=== PATIENT | female | born 1980 | race African-American/Black ===

== ENCOUNTER 2021-01-04 10:02 | Emergency (ER) | payer OTHER ==
[2021-01-04 10:09] VITALS: BMI 40.4
[2021-01-04] MEDS ORDERED: SODIUM CHLORIDE 1,000 ML IV STA (10:59)
[2021-01-04 11:36] LABS: BASO % 1.2 % (0-2.0); EOS % 1.5 % (0-4.5); HEMATOCRIT 39.7 % (32.4-45.2); HEMOGLOBIN 13.2 GM/dL (10.7-15.3); LYMPH % 30.5 % (8-40); MCH 27.6 pg (25.7-33.7); MCHC 33.1 g/dl (32.0-36.0); MEAN CELL VOLUME 83.3 fl (80-96); MEAN PLT VOLUME 7.9 fl (7.5-11.1); MONO % 5.7 % (3.8-10.2); NEUT % 61.1 % (42.8-82.8); PLATELET COUNT 377 10^3/uL (134-434); RBC 4.77 M/mm3 (3.60-5.2); RDW 16.3 % (11.6-15.6); WHITE BLOOD COUNT 6.9 K/mm3 (4.0-10.0)
[2021-01-04 11:43] LABS: INR 0.97 (0.83-1.09); PROTHROMBIN TIME (PATIENT) 11.8 SEC (9.7-13.0)
[2021-01-04 12:06] LABS: BLOOD UREA NITROGEN 14.7 mg/dL (7-18); CALCIUM 9.4 mg/dL (8.5-10.1)
[2021-01-04 12:10] LABS: CREATININE 0.8 mg/dL (0.55-1.3)
[2021-01-04 12:11] LABS: BILIRUBIN,TOTAL 0.3 mg/dL (0.2-1); TOT PROT 7.8 g/dl (6.4-8.2)
[2021-01-04 17:25] VITALS: BP 113/70; PULSE 83; TEMP 98.2
[2021-01-04 17:38] LABS: EPI CELLS 9 /uL (0-25.1); HYALINE CASTS 1 /uL (0-3.1); PH,URINE 5.5 (5.0-8.0); URINE APPEARANCE CLEAR; URINE BACTERIA 15 /uL (0-1359); URINE BILIRUBIN NEGATIVE (NEGATIVE); URINE COLOR RED; URINE GLUCOSE (UA) NEGATIVE (NEGATIVE); URINE KETONE NEGATIVE (NEGATIVE); URINE LEUK ESTERASE TRACE (NEGATIVE); URINE NITRITE NEGATIVE (NEGATIVE); URINE PROTEIN 1+ (NEGATIVE); URINE RBC 5151 /uL (0-23.9); URINE UROBILINOGEN 0.2 mg/dL (0.2-1.0); URINE WBC 36 /uL (0-25.8)
[2021-01-04 17:44] LABS: HCG,QUALITATIVE URINE NEGATIVE
== END 2021-01-04 18:05 | disposition home or self-care (01) ==
LOC: JER 10:02
PROC: 3E0337Z Introduction of Electrolytic and Water Balance Substance into Peripheral Vein, Percutaneous Approach (ICD-10-PCS; principal; 2021-01-04)
DX: N94.6 Dysmenorrhea, unspecified (principal)
CPT/HCPCS: 36415; 76830-TC; 80053; 81003; 84703; 85025; 85610; 86850; 86900; 86901; 87077; 87086; 99284-25

== ENCOUNTER 2021-09-05 18:11 | Emergency (ER) | payer OTHER ==
[2021-09-05 18:37] VITALS: BMI 41.2
[2021-09-05] MEDS ORDERED: KETOROLAC TROMETHAMINE 30 MG/1 ML VIAL IM ONE (22:33)
[2021-09-05] MEDS ORDERED: SODIUM CHLORIDE 0.9% 500 ML INFUS.BAG IV ONE (22:34)
[2021-09-05] MEDS ORDERED: KETOROLAC TROMETHAMINE 30 MG/1 ML VIAL IVPUSH ONE (22:35)
[2021-09-05] MEDS ORDERED: KETOROLAC TROMETHAMINE 30 MG/1 ML VIAL ONE (22:45)
[2021-09-06 02:02] VITALS: BP 136/89; PULSE 88; TEMP 97.8
== END 2021-09-06 02:19 | disposition home or self-care (01) ==
LOC: JER 18:11
PROC: 3E0333Z Introduction of Anti-inflammatory into Peripheral Vein, Percutaneous Approach (ICD-10-PCS; principal; 2021-09-05)
DX: R10.2 Pelvic and perineal pain (principal)
CPT/HCPCS: 76830-TC; 99284-25

== ENCOUNTER 2021-10-11 04:17 | Day surgery (SDC) | payer OTHER ==
[2021-10-10 13:13] VITALS: BMI 40.8
[2021-10-11] MEDS ORDERED: FENTANYL CITRATE/PF 50 MCG/ML VIAL ONE ×4 (14:45→16:31)
[2021-10-11] MEDS ORDERED: MIDAZOLAM HCL 2 MG/2 ML SINGLE DOSE VIAL ONE (14:46)
[2021-10-11] MEDS ORDERED: PROPOFOL 20 ML ONE ×4 (14:46)
[2021-10-11] MEDS ORDERED: ROCURONIUM BROMIDE 100 MG/10 ML VIAL ONE ×2 (14:46→16:58)
[2021-10-11] MEDS ORDERED: PROMETHAZINE HCL 25 MG/1 ML VIAL IVPUSH PRN (15:49)
[2021-10-11] MEDS ORDERED: oxyCODONE HCL 5 MG TABLET PO PRN (15:49)
[2021-10-11] MEDS ORDERED: ONDANSETRON 4 MG/2 ML VIAL IVPUSH PRN (15:49)
[2021-10-11] MEDS ORDERED: LACTATED RINGERS SOLUTION 1,000 ML IV SCH (16:00)
[2021-10-11] MEDS ORDERED: ceFAZolin SODIUM 1 GM VIAL IVPB ONE (16:15)
[2021-10-11] MEDS ORDERED: NEOSTIGMINE METHYLSULFATE 0.5 MG/ML - 10 ML MDV ONE (16:48)
[2021-10-11] MEDS ORDERED: LIDOCAINE HCL/PF 2% SDV 5ML VIAL ONE (16:50)
[2021-10-11] MEDS ORDERED: ONDANSETRON 4 MG/2 ML VIAL ONE ×2 (16:50→17:30)
[2021-10-11] MEDS ORDERED: ceFAZolin SODIUM 1 GM VIAL ONE (16:50)
[2021-10-11] MEDS ORDERED: METOPROLOL TARTRATE 5 MG/5 ML VIAL ONE (16:50)
[2021-10-11] MEDS ORDERED: GLYCOPYRROLATE 0.2 MG/1 ML VIAL ONE ×2 (16:50→17:13)
[2021-10-11] MEDS ORDERED: KETOROLAC TROMETHAMINE 30 MG/1 ML VIAL ONE (16:50)
[2021-10-11] MEDS ORDERED: DEXAMETHASONE SOD PHOSPHATE 4 MG/1 ML VIAL ONE (16:50)
[2021-10-11 19:52] VITALS: BP 117/71; PULSE 79; TEMP 97.9
== END 2021-10-11 19:40 | disposition home or self-care (01) ==
LOC: JASU-SURG 04:17
PROVIDERS: ATTEND Specialist
PROC: 0UDB7ZX Extraction of Endometrium, Via Natural or Artificial Opening, Diagnostic (ICD-10-PCS; principal; 2021-10-11 12:45)
PROC: 0UJD8ZZ Inspection of Uterus and Cervix, Via Natural or Artificial Opening Endoscopic (ICD-10-PCS; 2021-10-11 12:45)
PROC: 0WJJ4ZZ Inspection of Pelvic Cavity, Percutaneous Endoscopic Approach (ICD-10-PCS; 2021-10-11 12:45)
DX: N92.0 Excessive and frequent menstruation with regular cycle (principal); N94.6 Dysmenorrhea, unspecified; D25.9 Leiomyoma of uterus, unspecified; N94.10 Unspecified dyspareunia; R10.2 Pelvic and perineal pain
CPT/HCPCS: 81025; 88305-TC; 94760

== ENCOUNTER 2022-06-06 04:24 | Inpatient (IN) | payer OTHER ==
[2022-05-31 13:54] VITALS: BMI 40.4
[2022-06-06] MEDS ORDERED: PROPOFOL 80 ML ONE (07:24)
[2022-06-06] MEDS ORDERED: BUPIVACAINE LIPOSOME/PF (EXPAREL) 266 MG/20 ML VIAL ONE (09:30)
[2022-06-06] MEDS ORDERED: BUPIVACAINE HCL/PF 0.5% (5MG/ML) 10 ML VIAL ONE (09:31)
[2022-06-06] MEDS ORDERED: MIDAZOLAM HCL 2 MG/2 ML SINGLE DOSE VIAL ONE (09:33)
[2022-06-06] MEDS ORDERED: ceFAZolin SODIUM 1 GM VIAL IVPB ONE ×2 (10:25→10:31)
[2022-06-06] MEDS ORDERED: ROCURONIUM BROMIDE 50 MG/5 ML SYRINGE ONE (10:40)
[2022-06-06] MEDS ORDERED: ALBUMIN HUMAN 5% 500 ML IV SOLUTION IV ONE ×4 (10:49→11:00)
[2022-06-06] MEDS ORDERED: PROPOFOL 20 ML ONE ×2 (11:30→17:30)
[2022-06-06] MEDS ORDERED: ACETAMINOPHEN 325 MG TABLET (FP) PO PRN (11:48)
[2022-06-06] MEDS ORDERED: SIMETHICONE 80 MG TAB.CHEW (FP) PO PRN (11:48)
[2022-06-06] MEDS ORDERED: DOCUSATE SODIUM 100 MG CAPSULE (FP) PO PRN (11:48)
[2022-06-06] MEDS ORDERED: oxyCODONE HCL 5 MG TABLET PO PRN ×2 (11:48)
[2022-06-06] MEDS ORDERED: ONDANSETRON 4 MG/2 ML VIAL IVPUSH PRN (11:48)
[2022-06-06] MEDS ORDERED: BISACODYL 5 MG TABLET.DR (FP) PO PRN (11:48)
[2022-06-06] MEDS: ONDANSETRON 4 MG/2 ML VIAL IVPUSH PRN ×2 (14:17→19:28)
[2022-06-06] MEDS: IBUPROFEN 800 MG/8 ML IJ IVPB PRN ×2 (14:21→22:27)
[2022-06-06] MEDS ORDERED: SUCCINYLCHOLINE CHLORIDE 200 MG/10 ML SYRINGE ONE (17:31)
[2022-06-06] MEDS: CEFAZOLIN 1 GM in DEXTROSE 5%-WATER - 50 ML IVPB SCH (18:05)
[2022-06-06] MEDS: ACETAMINOPHEN 1000 MG/100 ML BAG IVPB SCH (18:50)
[2022-06-06] MEDS: LACTATED RINGERS SOLUTION 1,000 ML/1,000 ML INFUS.BAG IV SCH (20:25)
[2022-06-06 22:27] VITALS: RESP 16
[2022-06-07] MEDS: ONDANSETRON 4 MG/2 ML VIAL IVPUSH PRN (01:01)
[2022-06-07] MEDS: ACETAMINOPHEN 1000 MG/100 ML BAG IVPB SCH ×2 (02:24→09:55)
[2022-06-07] MEDS: CEFAZOLIN 1 GM in DEXTROSE 5%-WATER - 50 ML IVPB SCH ×2 (02:32→09:55)
[2022-06-07] MEDS: LACTATED RINGERS SOLUTION 1,000 ML/1,000 ML INFUS.BAG IV SCH (04:22)
[2022-06-07] MEDS: IBUPROFEN 800 MG/8 ML IJ IVPB PRN (08:36)
[2022-06-07 08:48] VITALS: BP 144/84; PULSE 78; TEMP 98.3
[2022-06-07 10:09] LABS: HEMATOCRIT 40.6 % (32.4-45.2); HEMOGLOBIN 13.7 GM/dL (10.7-15.3); MCH 28.6 pg (25.7-33.7); MCHC 33.7 g/dl (32.0-36.0); MEAN CELL VOLUME 84.7 fl (80-96); MEAN PLT VOLUME 8.3 fl (7.5-11.1); PLATELET COUNT 352 10^3/uL (134-434); RBC 4.79 M/mm3 (3.60-5.2); RDW 15.7 % (11.6-15.6)
[2022-06-07] MEDS ORDERED: IBUPROFEN 600 MG TABLET (FP) PO PRN (11:48)
== END 2022-06-07 15:14 | disposition home or self-care (01) | DRG 519 ==
LOC: J2C 04:24 → J3W 13:50
PROVIDERS: ADMIT Specialist; ATTEND Specialist
PROC: 0DNW0ZZ Release Peritoneum, Open Approach (ICD-10-PCS; principal; 2022-06-04)
PROC: 0UT90ZL Resection of Uterus, Supracervical, Open Approach (ICD-10-PCS; 2022-06-04)
PROC: 0UT70ZZ Resection of Bilateral Fallopian Tubes, Open Approach (ICD-10-PCS; 2022-06-04)
PROC: 0WJJ0ZZ Inspection of Pelvic Cavity, Open Approach (ICD-10-PCS; 2022-06-04)
DX: D25.9 Leiomyoma of uterus, unspecified (principal); N92.1 Excessive and frequent menstruation with irregular cycle; N73.6 Female pelvic peritoneal adhesions (postinfective); E78.5 Hyperlipidemia, unspecified; N83.209 Unspecified ovarian cyst, unspecified side; F41.9 Anxiety disorder, unspecified
CPT/HCPCS: 36415; 80053; 81025; 85027; 85610; 85730; 86850; 86900; 86901; 88302-TC; 88305-TC; 94010; 94760; C9803-CS; U0003; U0005